=== PATIENT | male | born 1995 | race African-American/Black ===

== ENCOUNTER → 2020-11-28 | Outpatient (CLI) | payer OTHER ==
[~2020-11-28] MED LIST: NO HOME MEDS; NORCO 5-325 TA1 EACH PO; NORFLEX100 MG PO; PEPCID20 MG PO; PHENERGAN 25 MG25 M1 PO; PROAIR HFA8.5 GM INH
== END ==
LOC: LAB 09:34
PROVIDERS: ATTEND Anesthesiology
DX: Z01.812 Encounter for preprocedural laboratory examination (principal); Z20.822 Contact with and (suspected) exposure to COVID-19